=== PATIENT | female | born 1955 | race Asian ===

== ENCOUNTER 2020-02-14 20:17 | Emergency (ER) | payer OTHER ==
[2020-02-14 20:43] VITALS: BP 179/103; PULSE 81; TEMP 99.2; BMI 25.9
--- NOTE | 2020-02-14 20:44 | PDOC ---
Rapid Medical Evaluation Chief Complaint: Pain Time Seen by Provider: 02/14/20 20:26 Medical Evaluation: Allergies Allergy/AdvReac Type Severity Reaction Status Date / Time No Known Allergies Allergy Verified 11/13/12 13:50 02/14/20 20:41 HPI: COVID-19 CDC guideline data points: The patient is a 64yo F presents with suspected COVID-19 with associated symptoms of fever, dry cough complicated by this/these comorbidities: HTN. ROS: NEGATIVE: difficulty breathing, shortness of breath, chest pain, lightheadedness, dizziness, nausea, vomiting and diarrhea. Other 12 point ROS reviewed and negative. Exam: General: NAD, Well-Appearing, Awake, Alert Oriented x3. Vital signs stable. ENT: No rhinorrhea or nasal congestion. Neck: FROM, no midline tenderness. Lungs: Clear to auscultation bilaterally without wheezes, rhonchi or rales. Normal excursion. Patient is able to speak in full sentences. Heart: HR: 81. Regular rhythm, S1-S2 present, no murmurs rubs or gallops. Abdomen: Non-distended. MSK/Extremities: No decrease ROM, No obvious deformities. No obvious cyanosis noted. Neuro: Normal Gait, Cranial Nerves II through XII Grossly Intact. Skin: No obvious rashes, bruising. Color Normal Appearing. Assessment/Plan: Cough/fever Patient has a history of this/these comorbidities: HTN, denies recent travel. Potential COVID exposure as she works at [employer]. Tested for Covid 1 week ago and negative. Patient does meet testing criteria at this time. ASSESSMENT: Denies recent travel and known Covid exposure. Treatment: Covid-19 testing CXR reassess 02/14/20 22:04 CXR- Left lower lobe PNA. cbc, cmp, blood cx 02/14/20 22:52 Laboratory Tests 02/14/20 02/14/20 22:00 22:00 WBC 10.4 H RBC 4.47 Hgb 13.3 Hct 39.9 MCV 89.1 MCH 29.7 MCHC 33.3 RDW 13.2 Plt Count 248 MPV 8.3 Absolute Neuts (auto) 5.0 Neutrophils % 48.0 Lymphocytes % 41.8 H Monocytes % 7.0 Eosinophils % 2.8 Basophils % 0.4 Nucleated RBC % 0 Sodium 137 Potassium 3.8 Chloride 101 Carbon Dioxide 27 Anion Gap 9 BUN 15.7 Creatinine 0.7 Est GFR (CKD-EPI)AfAm 105.38 Est GFR (CKD-EPI)NonAf 90.92 Random Glucose 105 Calcium 9.0 Total Bilirubin 0.4 AST 15 ALT 20 Alkaline Phosphatase 73 Total Protein 7.6 Albumin 3.9 Based on curb 65 criteria I feel it is safe to discharge patient home on azithromycin and Levaquin 500 mg daily for 5 days. Patient has been instructed to follow-up with her primary doctor for reevaluation. I discussed the physical exam findings, ancillary test results and final diagnoses with the patient. I answered all of the patient's questions. The patient was satisfied with the care received and felt comfortable with the discharge plan and treatment plan. The patient will call their primary care physician within 24 hours to arrange follow-up and will return to the Emergency Department with any new, persistent or worsening symptoms. Portions of this note have been documented using voice recognition software. As a result, errors may occur in the die mounter process. Effort has been made to correct all grammatical and die mounter error, but some may have been missed which may produce sporadic inaccurate die mounter or nonsensical phrases. 02/14/20 23:11 Discharge Disposition - Diagnosis Left lower lobe pneumonia Qualifiers: Pneumonia type: due to unspecified organism Qualified Code(s): J18.9 - Pneumonia, unspecified organism - Discharge Dispostion Disposition: HOME Condition at time of disposition: Fair Decision to Admit order: No - Prescriptions Prescriptions: levoFLOXacin [Levaquin -] 500 mg PO DAILY #5 tablet Azithromycin [Zithromax 250mg Tablets -] 250 mg PO UTDICT #6 tab - Referrals Referrals: Charity Ybarra MD [Primary Care Provider] - - Patient Instructions Additional Instructions: Your chest x-ray today showed a pneumonia in your left lower lobe. Take azithromycin 500 mg on the first day followed by 250 mg every day from days 2 through 5. Take Tylenol or Motrin as needed for fevers and/or pain. Follow pharm tech's instructions for appropriate dosage. Your emergency department visit is incomplete until you follow-up with your primary doctor. Your COVID testing will take 2 to 3 days to get the results. You will be called regardless of the results. Return to the emergency department for any new or worsening symptoms. Thank you very much for choosing us to provide your emergent healthcare needs. - Post Discharge Activity Work/School Note: Back to Work
[2020-02-14] MEDS ORDERED: amLODIPine BESYLATE 5 MG TABLET (FP) PO ONE (21:00)
[2020-02-14] MEDS ORDERED: amLODIPine BESYLATE 5 MG TABLET (FP) ONE (21:04)
[2020-02-14 22:08] LABS: BASO % 0.4 % (0-2.0); EOS % 2.8 % (0-4.5); HEMATOCRIT 39.9 % (32.4-45.2); HEMOGLOBIN 13.3 GM/dL (10.7-15.3); LYMPH % 41.8 % (8-40); MCH 29.7 pg (25.7-33.7); MCHC 33.3 g/dl (32.0-36.0); MEAN CELL VOLUME 89.1 fl (80-96); MEAN PLT VOLUME 8.3 fl (7.5-11.1); PLATELET COUNT 248 K/MM3 (134-434); RBC 4.47 M/mm3 (3.60-5.2); RDW 13.2 % (11.6-15.6); WHITE BLOOD COUNT 10.4 K/mm3 (4.0-10.0)
[2020-02-14] MEDS ORDERED: ACETAMINOPHEN 325 MG TABLET (FP) PO ONE (22:12)
[2020-02-14] MEDS ORDERED: ACETAMINOPHEN 325 MG TABLET (FP) ONE (22:29)
[2020-02-14 22:49] LABS: ALBUMIN 3.9 g/dl (3.4-5.0); BILIRUBIN,TOTAL 0.4 mg/dL (0.2-1); BLOOD UREA NITROGEN 15.7 mg/dL (7-18); CREATININE 0.7 mg/dL (0.55-1.3); POTASSIUM 3.8 mmol/L (3.5-5.1); TOT PROT 7.6 g/dl (6.4-8.2)
== END 2020-02-14 23:32 | disposition home or self-care (01) ==
LOC: JER 20:17
DX: J18.9 Pneumonia, unspecified organism (principal)
CPT/HCPCS: 36415; 71045-TC-FY; 80053; 85025; 99284-25; U0003

== ENCOUNTER 2020-05-06 04:50 | Day surgery (SDC) | payer OTHER ==
[2020-05-02 16:00] VITALS: BMI 25.0
[~2020-05-06 04:50] MED LIST: ceFAZolin 2 GRAM PREMIX BAG IVPB ONE
--- OUTSIDE RECORDS SUMMARY | 2020-05-06 04:54 | XMS ---
:1955 Author Organization [facility] Care Team Providers Name Role Phone ANDRIY Unavailable Unavailable Re-disclosure Warning The records that you are about to access may contain information from federally- assisted alcohol or drug abuse programs. If such information is present, then the following federally mandated warning applies: This information has been disclosed to you from records protected by federal confidentiality rules (42 CFR part 2). The federal rules prohibit you from making any further disclosure of this information unless further disclosure is expressly permitted by the written consent of the person to whom it pertains or as otherwise permitted by 42 CFR part 2. A general authorization for the release of medical or other information is NOT sufficient for this purpose. The Federal rules restrict any use of the information to criminally investigate or prosecute any alcohol or drug abuse patient.The records that you are about to access may contain highly sensitive health information, the redisclosure of which is protected by Article 27-F of the [facility] Public Health law. If you continue you may haveaccess to information: Regarding HIV / AIDS; Provided by facilities licensed or operated by the [facility] Office of Mental Health; or Provided by the [facility] Office for People With Developmental Disabilities. If such information is present, then the following [facility] mandated warning applies: This information has been disclosed to you from confidential records which are protected by state law. State law prohibits you from making any further disclosure of this information without the specific written consent of the person to whom it pertains, or as otherwise permitted by law. Any unauthorized further disclosure in violation of state law may result in a fine or care home sentence or both. A general authorization for the release of medical or other information is NOT sufficient authorization for further disclosure. Encounters Encounter Providers Location Date Indications Data Source(s ) Outpatient Attender: 11/24/2019 Z03.818 [facility] olga ASHRAFAdmitter: ANDRIY 04:20:00 [facility] Z03.818 Insurance Providers Payer name Policy type Policy ID Covered Covered democrat's Policy P ellie / Coverage democrat ID relationship to [place] ormation type suarez LOCAL [id number] - [id number] SP [id number] [facility] [id number] - [id number] SP [id number] [facility] Problems, Conditions, and Diagnoses Code Display Name Description Problem Type Effective Data Sour ce(s) Dates Z03.818 Encounter for ENCNTR FOR OBS Diagnosis 11/24/2019 [facility] observation for FOR SUSP EXPSR TO 04:20:00 AM [facility] suspected OTH BIOLG AGENTS [facility] [employer] [facility] exposure to other RULED OUT biological agents ruled out Results ID Date Data Source [id number] 05/01/2020 03:40:00 PM EDT [facility] Name Value Range Interpretation Description Data Sup porting Code Source(s) Document(s ) SARS [facility] coronavirus 2 RNA This lab was ordered by [facility] and reported by [facility]. ID Date Data Source [id number] 04/25/2020 02:00:00 PM EDT [facility] Name Value Range Interpretation Code Description Data Lida rce(s) Supporting Document(s ) SARS-CoV-2 [facility] by TIMOTHY This lab was ordered by [facility] and reported by [employer]. ID Date Data Source [id number] 04/25/2020 02:00:00 PM EDT [facility] Name Value Range Interpretation Description Data Sup porting Code Source(s) Document(s ) 2019 Novel [facility] Coronavirus RNA Interpretation Unspecified Specimen Qualitative TIMOTHY Probe Detection This lab was ordered by [facility] and rep orted by [facility]. ID Date Data Source [id number] 04/17/2020 07:00:00 AM EDT [facility] Name Value Range Interpretation Description Data Sup porting Code Source(s) Document(s ) 2019 Novel [facility] Coronavirus RNA Interpretation Unspecified Specimen Qualitative [facility] Probe Detection This lab was ordered by [facility] and rep orted by [facility]. ID Date Data Source [id number] 04/17/2020 07:00:00 AM EDT [facility] Name Value Range Interpretation Code Description Data Lida rce(s) Supporting Document(s ) SARS-CoV-2 [facility] by TIMOTHY This lab was ordered by [facility] and reported by [facility]. ID Date Data Source [id number] 04/12/2020 07:00:00 AM EDT [facility] Name Value Range Interpretation Description Data Sup porting Code Source(s) Document(s ) 2018 Novel [facility] Coronavirus RNA Interpretation Unspecified Specimen Qualitative TIM[facility] Probe Detection This lab was ordered by [facility] and rep orted by [facility]. ID Date Data Source [id number] 04/12/2020 07:00:00 AM EDT [facility] Name Value Range Interpretation Code Description Data Lida rce(s) Supporting Document(s ) SARS-CoV-2 [facility] by TIMOTHY This lab was ordered by [facility] I/[facility] and reported by [facility]. ID Date Data Source [id number] 04/08/2020 06:45:00 AM EDT [facility] Name Value Range Interpretation Code Description Data Lida rce(s) Supporting Document(s ) SARS-CoV-2 [facility] by TIMOTHY This lab was ordered by [facility] and reported by [facility]. ID Date Data Source [id number] 04/08/2020 06:45:00 AM EDT [facility] Name Value Range Interpretation Description Data Sup porting Code Source(s) Document(s ) 2019 Novel [facility] Coronavirus RNA Interpretation Unspecified Specimen Qualitative TIM[facility] Probe Detection This lab was ordered by [facility] and rep orted by [facility]. ID Date Data Source [id number] 04/01/2020 07:00:00 AM EDT [facility] Name Value Range Interpretation Code Description Data Lida rce(s) Supporting Document(s ) SARS-CoV-2 [facility] by TIMOTHY This lab was ordered by [facility] and reported by [facility]. ID Date Data Source [id number] 04/01/2020 07:00:00 AM EDT [facility] Name Value Range Interpretation Description Data Sup porting Code Source(s) Document(s ) SARS [facility] CORONAVIRUS 2 RNA:PRTHR:PT:RE SPIRATORY:ORD:P ROBE.AMP.TAR This lab was ordered by [facility] and rep orted by [facility]. ID Date Data Source [id number] 03/25/2020 01:25:00 PM EDT [facility] Name Value Range Interpretation Code Description Data Lida rce(s) Supporting Document(s ) SARS-CoV-2 [facility] by TIMOTHY This lab was ordered by [facility] and reported by [facility]. ID Date Data Source [id number] 03/25/2020 01:25:00 PM EDT [facility] Name Value Range Interpretation Description Data Sup porting Code Source(s) Document(s ) 2019 Novel [facility] Coronavirus RNA Interpretation Unspecified Specimen Qualitative TIM[facility] Probe Detection This lab was ordered by [facility] and rep orted by [facility]. ID Date Data Source [id number] 03/18/2020 07:00:00 AM EDT [facility] Name Value Range Interpretation Code Description Data Lida rce(s) Supporting Document(s ) SARS-CoV-2 [facility] by TIMOTHY This lab was ordered by [facility] and reported by [facility]. ID Date Data Source [id number] 03/18/2020 07:00:00 AM EDT [facility] Name Value Range Interpretation Description Data Sup porting Code Source(s) Document(s ) 2019 Novel [facility] Coronavirus RNA Interpretation Unspecified Specimen Qualitative TIM[facility] Probe Detection This lab was ordered by [facility] and rep orted by [facility]. ID Date Data Source [id number] 03/12/2020 01:06:00 PM EDT [facility] Name Value Range Interpretation Code Description Data Lida rce(s) Supporting Document(s ) SARS-CoV-2 [facility] by TIMOTHY This lab was ordered by [facility] and reported by [facility]. ID Date Data Source [id number] 03/12/2020 01:06:00 PM EDT [facility] Name Value Range Interpretation Description Data Sup porting Code Source(s) Document(s ) 2019 Novel [facility] Coronavirus RNA Interpretation Unspecified Specimen Qualitative [facility] Probe Detection This lab was ordered by [facility] and rep orted by [facility]. ID Date Data Source [id number] 03/04/2020 07:30:00 AM EDT [facility] Name Value Range Interpretation Description Data Sup porting Code Source(s) Document(s ) SARS [facility] Coronavirus 2 RNA Presence Respiratory Specimen TIMOTHY Probe Detection This lab was ordered by [facility] and rep orted by [facility]. ID Date Data Source [id number] 02/26/2020 09:50:00 AM EDT [facility] Name Value Range Interpretation Description Data Sup porting Code Source(s) Document(s ) SARS [facility] Coronavirus 2 RNA Presence Respiratory Specimen TIMOTHY Probe Detection This lab was ordered by [facility] and rep orted by [facility]. ID Date Data Source [id number] 02/19/2020 07:00:00 AM EDT [facility] Name Value Range Interpretation Description Data Sup porting Code Source(s) Document(s ) SARS [facility] Coronavirus 2 RNA Presence Respiratory Specimen TIMOTHY Probe Detection This lab was ordered by [facility] and rep orted by [facility]. ID Date Data Source [id number] 02/14/2020 08:50:00 PM EDT [facility] Name Value Range Interpretation Description Data Sup porting Code Source(s) Document(s ) SARS [facility] coronavirus 2 RNA This lab was ordered by [facility] and reported by [facility]. ID Date Data Source [id number] 02/07/2020 04:00:00 PM EDT [facility] Name Value Range Interpretation Description Data Sup porting Code Source(s) Document(s ) SARS [facility] Coronavirus 2 RNA Presence Respiratory Specimen TIMOTHY Probe Detection This lab was ordered by [facility] and rep orted by [facility]. ID Date Data Source [id number] 02/01/2020 02:11:00 PM EDT [facility] Name Value Range Interpretation Description Data Sup porting Code Source(s) Document(s ) SARS [facility] Coronavirus 2 RNA Presence Respiratory Specimen TIMOTHY Probe Detection This lab was ordered by [facility] and rep orted by [facility]. ID Date Data Source [id number] 01/29/2020 11:30:00 AM EDT [facility] Name Value Range Interpretation Description Data Sup porting Code Source(s) Document(s ) SARS [facility] Coronavirus 2 RNA Presence Respiratory Specimen TIMOTHY Probe Detection This lab was ordered by [facility] and rep orted by [facility]. ID Date Data Source [id number] 01/25/2020 07:37:00 AM EDT [facility] Name Value Range Interpretation Description Data Sup porting Code Source(s) Document(s ) SARS [facility] Coronavirus 2 RNA Presence Respiratory Specimen TIMOTHY Probe Detection This lab was ordered by [facility] and rep orted by [facility]. ID Date Data Source [id number] 01/22/2020 02:47:00 PM EDT [facility] Name Value Range Interpretation Description Data Sup porting Code Source(s) Document(s ) SARS [facility] Coronavirus 2 RNA Presence Respiratory Specimen TIMOTHY Probe Detection This lab was ordered by [facility] and rep orted by [facility]. ID Date Data Source [id number] 01/17/2020 08:00:00 AM EDT [facility] Name Value Range Interpretation Description Data Sup porting Code Source(s) Document(s ) SARS [facility] Coronavirus 2 RNA Presence Respiratory Specimen TIMOTHY Probe Detection This lab was ordered by [facility] and rep orted by [facility]. ID Date Data Source [id number] 01/11/2020 07:12:00 AM EDT [facility] Name Value Range Interpretation Description Data Sup porting Code Source(s) Document(s ) SARS [facility] Coronavirus 2 RNA Presence Respiratory Specimen TIMOTHY Probe Detection This lab was ordered by [facility] and rep orted by [facility]. ID Date Data Source [id number] 01/03/2020 12:42:00 PM EDT [facility] Name Value Range Interpretation Description Data Sup porting Code Source(s) Document(s ) SARS [facility] Coronavirus 2 RNA Presence Respiratory Specimen TIMOTHY Probe Detection This lab was ordered by [facility] and rep orted by [facility]. ID Date Data Source [id number] 12/27/2019 11:35:00 AM EDT [facility] Name Value Range Interpretation Description Data Sup porting Code Source(s) Document(s ) SARS [facility] Coronavirus 2 RNA Presence Respiratory Specimen TIMOTHY Probe Detection This lab was ordered by [facility] and rep orted by [facility]. ID Date Data Source [id number] 11/24/2019 12:00:00 AM EDT [facility] Name Value Range Interpretation Code Description Data Lida rce(s) Supporting Document(s ) 2019-nCoV [facility] RNA XXX TIMOTHY+probe- Imp This lab was ordered by [facility] and reported by [employer] ID Date Data Source [id number] 11/04/2019 07:13:00 PM EDT [facility] Name Value Range Interpretation Code Description Data Lida rce(s) Supporting Document(s ) RESULT [facility] This lab was ordered by [facility] and reported by [facility]. Procedure
[2020-05-06] MEDS ORDERED: DEXAMETHASONE SOD PHOSPHATE/PF 10 MG/ML SDV ONE (07:45)
[2020-05-06] MEDS ORDERED: ROPIVACAINE HCL 0.5% 30ML VIAL ONE (07:45)
[2020-05-06] MEDS ORDERED: LIDOCAINE HCL/PF 2% SDV 5ML VIAL ONE (07:55)
[2020-05-06] MEDS ORDERED: MIDAZOLAM HCL 2 MG/2 ML SINGLE DOSE VIAL ONE ×2 (07:55)
[2020-05-06] MEDS ORDERED: ROCURONIUM BROMIDE 50 MG/5 ML SYRINGE ONE (07:55)
[2020-05-06] MEDS ORDERED: PROPOFOL 20 ML ONE (07:55)
--- NOTE | 2020-05-06 08:04 | HP ---
Satellite H - Chief Complaint Chief Complaint: left shoulder pain - Past Medical History Allergies/Adverse Reactions: Allergies Allergy/AdvReac Type Severity Reaction Status Date / Time No Known Allergies Allergy Verified 05/06/20 07:26 - Current Medications Current Medications: Home Medications Medication Instructions Recorded Atenolol [Tenormin -] 50 mg PO DAILY 11/13/12 Atorvastatin Ca [Lipitor] 10 mg PO HS 05/02/20 Hydrochlorothiazide [Hctz -] 25 mg PO DAILY 05/02/20 Losartan Potassium [Cozaar] 100 mg PO DAILY 05/02/20 Hydrocodone/Acetaminophen 1 each PO Q6H #30 tablet MDD 4 05/06/20 [Hydrocodone-Acetamin 5-325 mg] Omeprazole 20 mg PO DAILY 05/06/20 Satellite Physical Exam - Physical Examination Vital Signs: Vital Signs Period Temp Pulse Resp BP Sys/De La Cruz Pulse Ox Last 24 Hr 97.1 F 86 18 156/87 98-98 General Appearance: Well Nourished, Well Developed, Alert & Oriented x3 ENT: Clear Lung: Normal air movement Extremities: Other (left shoulder- + ttp, dec rom, + neer, + gonzalez, nvi) Neurological: Intact, Alert, Oriented Satellite Impression/Plan - Impression/Plan Impression: left shoulder impingement, rct Operative Procedure: left shoulder arthroscopy with SAD possible RCR Date to be Performed: 05/06/20
[2020-05-06] MEDS ORDERED: ceFAZolin SODIUM 1 GM VIAL ONE (08:36)
[2020-05-06] MEDS ORDERED: ceFAZolin 2 GRAM PREMIX BAG IVPB ONE (08:37)
[2020-05-06] MEDS ORDERED: DEXAMETHASONE SOD PHOSPHATE 4 MG/1 ML VIAL ONE (08:41)
[2020-05-06] MEDS ORDERED: ePHEDrine SULFATE 50 MG/1 ML AMPULE ONE (08:42)
[2020-05-06] MEDS ORDERED: GLYCOPYRROLATE 0.2 MG/1 ML VIAL ONE (09:07)
[2020-05-06] MEDS ORDERED: NEOSTIGMINE METHYLSULFATE 0.5 MG/ML - 10 ML MDV ONE (09:08)
[2020-05-06] MEDS ORDERED: DESFLURANE GAS 240 ML BOTTLE IH ONE (09:13)
--- NOTE | 2020-05-06 09:44 | OP ---
Operative Note - Note: Operative Date: 05/06/20 Pre-Operative Diagnosis: left shoulder impingement syndrome, RTC tear, adhesive capsulitis Operation: left shoulder arthroscopy, subacromial decompression, mini open RTC repair, Manipulation under anesthesia Implants: Arthrex Swivel Lock anchor x 2, Fiber wire x 4 Surgeon: Chapo Morales Solar Sales Manager: Arnaldo Angeles Anesthesiologist/PROFILER: Marli Tyler Anesthesia: General, Regional Specimens Removed: shavings Estimated Blood Loss (mls): 40 Drains, Volume Out (mls): 0 Blood Volume Replaced (mls): 0 Fluid Volume Replaced (mls): 1,000 Operative Report Dictated: Yes
[2020-05-06] MEDS ORDERED: ONDANSETRON 4 MG/2 ML VIAL IVPUSH PRN (10:13)
[2020-05-06] MEDS ORDERED: IBUPROFEN 800 MG/8 ML IJ IVPB PRN (10:13)
[2020-05-06] MEDS ORDERED: oxyCODONE HCL 5 MG TABLET PO PRN (10:13)
[2020-05-06] MEDS ORDERED: ACETAMINOPHEN 1000 MG/100 ML VIAL (NON FORMULARY) IVPB ONE (10:13)
[2020-05-06] MEDS ORDERED: LACTATED RINGERS SOLUTION 1,000 ML IV SCH (10:15)
[2020-05-06 13:08] VITALS: TEMP 97
[2020-05-06 14:58] VITALS: BP 130/83; PULSE 87
--- NOTE | 2020-05-06 15:26 | OP ---
DATE OF OPERATION: 05/06/2020 PREOPERATIVE DIAGNOSES: 1. Left shoulder impingement syndrome. 2. Adhesive capsulitis. 3. Rotator cuff tear. POSTOPERATIVE DIAGNOSES: 1. Left shoulder impingement syndrome. 2. Adhesive capsulitis. 3. Rotator cuff tear. PROCEDURE: Left shoulder arthroscopy, subacromial decompression, manipulation anesthesia and mini open rotator cuff repair. SURGEON: Chapo Morales MD MANAGER PROCUREMENT: ROYCE Valera ANESTHESIOLOGIST: Marli Tyler MD ANESTHESIA: Left interscalene block with LMA anesthesia. DRAINS: None. COMPLICATIONS: None. SPECIMEN: Arthroscopic shavings. BLOOD LOSS: 40 mL. BLOOD GIVEN: None. FLUID REPLACEMENT: Plasma-Lyte 1000 mL. INDICATIONS: This patient is a 64-year-old female with a preoperative diagnosis of left shoulder impingement syndrome, adhesive capsulitis and a large full-thickness retracted rotator cuff tear. After understanding the potential risks, complications, alternatives and benefits of surgery versus nonsurgical treatment the patient elected to undergo this procedure. She understands that her shoulder will never be normal and there is a chance that the rotator cuff is not fixable. DESCRIPTION OF PROCEDURE: The patient was brought to the operating room. LMA anesthesia was induced. A left interscalene block was performed. One g of IV Ancef was given. She was placed into the beach chair position with ample padding throughout. The left upper extremity was then manipulated under anesthesia. I was able to gain about 15 degrees of forward flexion, 10 degrees of abduction, 5 degrees each of internal and external rotation. I did feel release, but the shoulder was not extremely tight. The left upper extremity was then prepped and draped in a sterile fashion. The bony landmarks were marked out with a marking pen. Posterior portal was established. Diagnostic glenohumeral arthroscopy was performed. 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 The humeral head looked good except it was completely uncovered by the rotator cuff. The patient had a large full-thickness retracted crescent-shaped rotator cuff tear involving the entire supraspinatus, infraspinatus going down to the teres minor. There was no biceps tendon whatsoever. It was already gone. There was a lot of intraarticular synovitis and extensive debridement was done within the glenohumeral joint. Next, our attention turned to the subacromial space. Lateral portal was established under direct visualization using a spinal needle. Patient had a tremendous amount of synovitis and soft tissue debris within the subacromial space. An extensive soft tissue debridement was done in the anterior and posterior as well as the medial and lateral aspect of the subacromial space including a subdeltoid and subacromial bursectomy. Once this was done, this revealed a full-thickness crescent-shaped rotator cuff tear as was seen from the glenohumeral joint. A small portion of the humeral head was gently debrided for better healing. We put a grasper on. We used a Lester elevator for mobilization. There was a portion of the rotator cuff that was retracted almost to the glenoid. It was torn all the way down to the teres minor. There was a portion of the posterior flap of the rotator cuff that was more mobile and we were able to bring this down to the articular margin with the grasper. Therefore, 4 FiberWire sutures were placed into the rotator cuff tear, each about 1 cm apart using the Scorpion needle passer. Next, we converted from an arthroscopic to an open approach. A No. 15 scalpel blade was utilized to cut down through the skin. Subcutaneous hemostasis was achieved with the Bovie cautery. First a Gelpi and then a Lito with the deep blades was placed into the wound for retraction and visualization. Rongeur was used to do additional open bursectomy. We were able to directly visualize the rotator cuff tear and bring it down as far as was possible, as mentioned only to the articular margin. Using the standard technique we put in 4 FiberWire tails into each of 2 Arthrex SwiveLock anchors, one anterior, one posterior, bringing it down into the humeral head. Once we did this, the entirety of the rotator cuff was repaired. It did cover the head. The area was copiously irrigated and washed out. I was able to see and feel that there were no openings in the rotator cuff anymore. I felt the undersurface of the acromion and the bony decompression was good and flat. Next, we did closure using 0 Vicryl in the deltoid fascia, in the deep adipose layer, 2-0 Vicryl in the deep dermal layer. Final skin reapproximation was done with a running subcuticular 3-0 V-Loc 90 suture. The posterior portal was closed with 3-0 nylon suture. The area was then covered with Dermabond glue, Xeroform in the back and 2 Aquacel dressings. The drapery was removed. The patient was put into a shoulder immobilizer. Total operative time was about 1 hour. There were no complications during the case. The patient tolerated the procedure quite well and was brought to the ambulatory recovery room in stable condition. Marlen [id number]
--- NOTE | 2020-05-08 16:48 | PATH ---
Surgical Pathology Report Patient Name: LOIS POND [facility]. Rec. #: [id number] /Age/Gender: 1955 (Age: 64) / F Account: [id number] Location: [facility] SURGICAL Taken: 05/06/2020 Received: 05/06/2020 Reported: 05/08/2020 Physicians: Chapo Morales M.D. Specimen(s) Received LEFT SHOULDER SHAVINGS Clinical History Tear left shoulder Final Diagnosis LEFT SHOULDER SHAVINGS: FRAGMENTS OF BONE, SKELETAL MUSCLE, AND SYNOVIAL TISSUE WITH FOCAL REACTIVE CHANGE. Electronically Signed Yamile Monet M.D. Gross Description Received in formalin, labeled "left shoulder shavings," is a 5.0 x 4.0 x 0.4 cm. aggregate of wiseman-yellow soft tissue fragments. A sales representative supervisor portion is submitted in one cassette. /05/06/2020 saudi/05/06/2020
== END 2020-05-06 13:40 | disposition home or self-care (01) ==
LOC: JASU-SURG 04:50
PROVIDERS: ATTEND Orthopaedic Surgery
PROC: 0RNK4ZZ Release Left Shoulder Joint, Percutaneous Endoscopic Approach (ICD-10-PCS; principal; 2020-05-06 08:00)
PROC: 0LM20ZZ Reattachment of Left Shoulder Tendon, Open Approach (ICD-10-PCS; 2020-05-06 08:00)
DX: M75.42 Impingement syndrome of left shoulder (principal); M75.02 Adhesive capsulitis of left shoulder; M75.102 Unspecified rotator cuff tear or rupture of left shoulder, not specified as traumatic
CPT/HCPCS: 88304-TC; 94760; J0131

== ENCOUNTER 2021-04-14 10:59 | Emergency (ER) | payer OTHER ==
[2021-04-14 11:09] VITALS: BP 178/92; PULSE 60; TEMP 97.2; BMI 25.9
[2021-04-14] MEDS ORDERED: LIDOCAINE 5% TOPICAL PATCH TP ONE (13:39)
[2021-04-14] MEDS ORDERED: LIDOCAINE 5% TOPICAL PATCH ONE (13:51)
[2021-04-14] MEDS ORDERED: LIDOCAINE PATCH REMOVAL MC SCH (22:00)
== END 2021-04-14 16:22 | disposition home or self-care (01) ==
LOC: JER 10:59
DX: S09.90XA Unspecified injury of head, initial encounter (principal); W19.XXXA Unspecified fall, initial encounter; Y92.9 Unspecified place or not applicable
CPT/HCPCS: 70450-TC; 72127-TC; 72128-TC; 72131-TC; 93005; 93010; 99284-25; Q9967

== ENCOUNTER 2021-08-05 19:32 | Emergency (ER) | payer OTHER ==
[2021-08-05 19:50] VITALS: BP 131/80; PULSE 75; TEMP 98.4; BMI 25.1
[2021-08-06 23:06] LABS: SARS-CoV-2 NAA Not Detected (Not Detected)
== END 2021-08-05 19:54 | disposition home or self-care (01) ==
LOC: FER 19:32
DX: M79.10 Myalgia, unspecified site (principal); Z20.822 Contact with and (suspected) exposure to COVID-19
CPT/HCPCS: 99283-25; C9803; U0003; U0005

== ENCOUNTER 2021-12-03 20:00 | Emergency (ER) | payer OTHER ==
[2021-12-03 20:46] VITALS: BP 129/83; PULSE 89; TEMP 98.8; BMI 25.1
[2021-12-05 11:08] LABS: SARS-CoV-2 NAA Not Detected (Not Detected)
== END 2021-12-03 20:44 | disposition home or self-care (01) ==
LOC: FER 20:00
DX: R51.9 Headache, unspecified (principal); R50.9 Fever, unspecified
CPT/HCPCS: 99283-25; C9803-CS; U0003; U0005